=== PATIENT | male | born 1960 | race Caucasian/White ===

== ENCOUNTER 2021-01-06 11:20 | Emergency (ER) | payer BC, SELFPAY ==
[2021-01-06 12:10] VITALS: BP 157/85; PULSE 65; RESP 18; TEMP 36.7; O2SAT 98
--- NOTE | 2021-01-06 12:38 | ED.WOUNDLAC ---
HPI - Wound/Laceration General Chief Complaint: Wound/Laceration Stated Complaint: Wrist laceration Time Seen by Provider: 01/06/21 12:23 Source: patient Mode of arrival: ambulatory Limitations: no limitations History of Present Illness HPI narrative: Patient is a 60-year-old male complaining of accidentally cutting his left wrist with a razor knife while cutting drywall. Patient states that he was cutting the drywall when his hand slipped and accidentally cut his left wrist. Patient denies any other pain or injuries. Related Data Allergies Allergy/AdvReac Type Severity Reaction Status Date / Time No Known Allergies Allergy Verified 09/18/20 09:27 Review of Systems Review of Systems: All systems reviewed & are unremarkable except as noted in HPI and below PMFSH Past Medical History Medical History Deficient knowledge of leg surgery Left leg 1984 Hematospermia Hepatitis Hernia Hyperlipidemia Hypertension Osteoarthritis Surgical History Surgical History H/O wrist surgery Left 2002 History of knee replacement, total Left 2008 Family History Family History Mother Hypertension Family history of diabetes mellitus in first degree relative Other Cerebrovascular accident Diabetes mellitus Social History Social History Smoking status: Never smoker Smoking end date: 09/27/19 Alcohol intake: current Exam Const: General: no acute distress and alert Orientation/consciousness: patient oriented x3 HENMT: Head: normal to inspection Eyes: Conjunctivae: conjunctivae normal Resp: Effort & Inspection: normal respiratory effort Skin: General skin exam: normal color Neuro: General: patient oriented x3 and moves all extremities Extrem: Other: 1 cm puncture wound left wrist, neurovascular is intact, full range of motion. Psych: Mental Status: mental status grossly normal Affect: normal affect Attitude: cooperative Thought content: Yes Normal thought content present Course Vital Signs Vital signs: Vital Signs Temperature 36.7 C 01/06/21 12:10 Pulse Rate 65 01/06/21 12:10 Respiratory Rate 18 01/06/21 12:10 Blood Pressure 157/85 H 01/06/21 12:10 Pulse Oximetry 98 01/06/21 12:10 Temperature 36.7 C 01/06/21 12:10 Pulse Rate 65 01/06/21 12:10 Respiratory Rate 18 01/06/21 12:10 Blood Pressure 157/85 H 01/06/21 12:10 Pulse Oximetry 98 01/06/21 12:10 Procedures Laceration Laceration 1: Date: 01/06/21 Time: 13:34 Site: upper extremity (Left wrist) Side (If applicable): left Size (cm): 1 Description: linear Depth: simple, single layer ====== Skin Level ====== Skin layer closed with: dermabond ====== Subcutaneous Layer ====== ====== Muscle Layer ====== ====== Tendon Layer ====== Discharge Plan Discharge Clinical Impression: Puncture wound of left wrist Qualifiers: Encounter type: initial encounter Qualified Code(s): S61.532A - Puncture wound without foreign body of left wrist, initial encounter Patient Disposition: Home, Self-Care Condition: Improved Instructions: Puncture Wound (ED) Prescriptions: No Action sildenafil 100 mg tablet 100 mg PO DAILY PRN (Reason: sexual activity) Qty: 90 RF: 1 triamterene-hydrochlorothiazid 37.5-25 mg tablet 1 tablet PO DAILY Qty: 30 RF: 0 atenolol 50 mg tablet 50 mg PO DAILY Qty: 30 RF: 0 simvastatin 20 mg tablet 20 mg PO DAILY Qty: 30 RF: 0 Follow-up/Referrals: Km Sauceda DO [Primary Care Provider] - 01/08/21 Time of Disposition: 13:34
[2021-01-06] MEDS: TETANUS,DIPHTHERIA,AC PERTUSSIS ADULT (0.5 ML) BOOSTRIX IM (13:42)
[2021-01-06 13:46] VITALS: BP 148/80; PULSE 67; RESP 18; O2SAT 98
== END 2021-01-06 13:47 | disposition home or self-care (01) ==
LOC: ANHED 13:03
PROVIDERS: Emergency Provider Emergency Medicine; PCP Internal Medicine
DX: S61.532A Puncture wound without foreign body of left wrist, initial encounter (principal); Z23 Encounter for immunization; E78.5 Hyperlipidemia, unspecified; I10 Essential (primary) hypertension; M19.90 Unspecified osteoarthritis, unspecified site; Z96.652 Presence of left artificial knee joint; W27.8XXA Contact with other nonpowered hand tool, initial encounter
CPT/HCPCS: 12001; 90471; 90715; 99282

== ENCOUNTER → 2022-07-03 08:09 | Outpatient (CLI) | payer BC, SELFPAY ==
--- NOTE | ~2022-07-03 | XR_ITS ---
EXAMINATION: XR shoulder LT min 2V DATE: 07/03/2022 08:31 INDICATION: Left shoulder pain. TECHNIQUE: 5 views of left shoulder were obtained. COMPARISON: None. FINDINGS: Bone alignment is normal. No fracture. There is mild osteoarthritis of glenohumeral joint a nd moderate osteoarthritis of acromioclavicular joint. IMPRESSION: 1. Polyarticular osteoarthritis. Reviewed, dictated and finalized at location D.
== END ==
PROVIDERS: PCP Nurse Practitioner; Visit Provider Nurse Practitioner
DX: M25.512 Pain in left shoulder (principal); M19.012 Primary osteoarthritis, left shoulder
CPT/HCPCS: 73030

== ENCOUNTER → 2022-07-23 07:32 | Outpatient (CLI) | payer BC, SELFPAY ==
--- NOTE | ~2022-07-23 | MR_ITS ---
EXAMINATION: MR shoulder LT wo con DATE: 07/23/2022 08:34 INDICATION: Left shoulder pain TECHNIQUE: Magnetic resonance imaging (MRI) of the left shoulder was performed without intravenous co ntrast. Sequences included axial PD-weighted FS FSE, coronal oblique PD-weighted FS FSE, coronal obli que T2-weighted FS FSE, sagittal PD-weighted FS FSE, and sagittal T1-weighted SE. COMPARISON: None. FINDINGS: Coracoacromial arch: The acromion undersurface is flat in morphology (type I). The coracoacromial ligament is normal. Mode rate acromioclavicular osteoarthritis with small to moderate-sized inferiorly directed osteophytes. Rotator cuff: Full-thickness tear involving nearly the entire supraspinatus tendon sparing only a small portion of the conclusion of the posterior portion of the tendon to the conjoined portion of the supraspinatus a nd infraspinatus tendons. There is 4 cm medial retraction of the supraspinatus tendon tear origin. Th e tear extends anteriorly to involve nearly the entire lesser tuberosity insertion of the subscapular is tendon with small portion of intact tendon at the inferior most lesser tuberosity footplate and th in intact bursal side of the tendon which remains contiguous with the intact transverse humeral ligam ent. There is also significant medial retraction of the torn portion subscapularis tendon with marked attenuation of the distal 6 cm of the tendon. Mild tendinopathy at the anterior infraspinatus tendon without tear. The teres minor tendon is normal. There is mild fatty atrophy of the supraspinatus mus chicho belly. There is also some fatty atrophy of the subscapularis muscle belly however assessment is l imited due to the medial retraction of the muscle belly resulting from the tendon tear. Biceps tendon, glenoid labrum and glenohumeral cartilage: Moderate tendinopathy at the junction of the intra-articular and extra articular portion of the long head biceps tendon. There is a longitudinal split tear of the tendon at the level of the intertubercu lar groove. There is a linear tear at the base of the inferior glenoid labrum beginning anteriorly at the 4:00 position and extending inferiorly and posterior to the 9:00 position. 6 x 3 x 2 mm para lab ral cyst at the 6:00 position of the glenoid. More amorphous increased signal and irregular margins o f the posterior superior glenoid labrum consistent with less well-defined labral degeneration. Partia l-thickness cartilage loss without degenerative subchondral changes at the apex of the humeral head. Fluid: Small left glenohumeral joint effusion which communicates through the full-thickness rotator cuff tea r with an additional small amount of fluid in the subacromial/subdeltoid bursa. No loose osteochondra l bodies. Bones: No fracture or pathologic marrow replacing process. 16 x 12 x 9 mm T1 hypointense, T2 hyperintense le gail with lobular margins at the proximal left humeral metaphyseal region. No evident correlate on th e prior radiographs. IMPRESSION: 1. Full-thickness tear involving all but a small portion of the posterior most left supraspinatus ten don and which extends anteriorly is a near full-thickness articular sided subscapularis tendon tear w hich involves all but a small portion of the inferior most lesser tuberosity footplate as well as a m inimal amount the bursal side of the tendon which remains contiguous with the transverse humeral liga ment. 2. Mild left glenohumeral osteoarthritis with extensive labral tearing/degeneration. 3. Moderate-sized acromioclavicular osteoarthritis. 4. Indeterminate 16 x 12 x 9 mm T2 hyperintense lesion with lobular margins of the proximal metaphyse al region of the left humerus and without evident correlate on the plain radiographs statistically mo st likely to represent an enchondroma. If there is history of prior malignancy would recommend bone s can for further evaluation.
== END ==
PROVIDERS: PCP Internal Medicine; Visit Provider Nurse Practitioner
DX: M25.512 Pain in left shoulder (principal); S46.012A Strain of muscle(s) and tendon(s) of the rotator cuff of left shoulder, initial encounter; M19.012 Primary osteoarthritis, left shoulder; M89.9 Disorder of bone, unspecified
CPT/HCPCS: 73221

== ENCOUNTER 2022-09-30 00:46 | Day surgery (SDC) | payer BC, SELFPAY ==
[2022-09-15 15:00] VITALS: BMI 28.5
--- NOTE | 2022-09-15 15:06 | PC.NURSE ---
Report to the Outpatient Waiting Room, entrance under the green pavilion located off [facility], at time 1130 on date 09/30/21. Planned Procedure Time: 1330. Time changes happen often and if your time is changed the preop area will call you the afternoon before. - You and your visitor will be asked to self-screen and do not enter if you have any COVID symptoms. - Only one visitor is requested with a max of two and NO children visitors are allowed at this time. - The patient visitor may be requested to leave or wait in car when not with patient due to distancing restrictions. - A mask is REQUIRED within the hospital. Patients may have clear liquids (water, carbonated beverages, clear teas, apple juice) until 3 hours prior to surgery with a maximum of 20 ounces. - No food from midnight until time of surgery Take the following medications with a SIP of water the morning of surgery: ATENOLOL Medications to discontinue per physician: N/A Date to take last dose: N/A Please no make-up, nail turkish, hairspray, perfume, deodorant, or body powder the day of surgery. No jewelry (including any body piercings) or valuables the day of surgery, leave them at home. Please take a shower or bath the night before, or the morning of, surgery with an antibacterial soap. Wear comfortable, loose fitting clothing. - Jewelry must be removed prior to entering the operating room. Rings and piercings that are not removed may be cut off. - The hospital will not accept responsibility for valuables. - Please leave all valuables, including medications, at home the day of surgery. If you are going home after surgery, a licensed vending route driver must drive you home. - NO public transportation without another adult if you receive anesthesia. - We recommend that an adult stay with you for 24 hours following discharge. - We also recommend that you do not drive, make important decision, drink alcoholic beverages, or take any drugs that were not prescribed by your health care provider for at least 24 hours after your discharge time. Follow any additional instructions given to you from your surgeon. If you or anyone in your household have experienced Covid symptoms in the past week, please notify your surgeon or the nurse liaison at the phone number below for possible testing. Telephone instructions given to PT - EMILY BROWNING and asked if any additional questions and then verbalized understanding. Patient advised to call surgeon office or pre surgery nurse liaison [phone] if any additional questions.
[2022-09-30] VITALS (8 sets, daily range): BP systolic 133–162; BP diastolic 71–93; PULSE 54–97; RESP 12–16; TEMP 36.7; O2SAT 93–100
--- NOTE | 2022-09-30 07:20 | WPDHPUPDATE1 ---
History and Physical Update Update Date/Time: 09/30/22 07:20 History and Physical has been reviewed, including an updated exam of the patient. There are NO changes in the patient's condition. Risks, benefits, and alternatives have been discussed and questions answered. Patient agrees to proceed with procedure.
--- NOTE | 2022-09-30 07:42 | WPDANESEPPF ---
Anes - Initial Pre Proc Eval Procedure: Operation Date: 09/30/22 10:30 Proposed Procedures p Left Rotator Cuff Repair with Distal Clavicle Excision - Eros Chowdary MD <Erick Rolle DO - Last Filed: 10/08/22 13:39> Date/Time: 09/30/22 07:42 <Erick Rolle DO - Last Filed: 10/08/22 13:39> Surgeon: Eros Chowdary MD <Erick Rolle, DO - Last Filed: 10/08/22 13:39> Pre Op Diagnosis: Lt Rot Cuff Tear, AC Joint Arthritis <Erick Rolle DO - Last Filed: 10/08/22 13:39> Patient Data Age: 62 Gender: M Height: 1.8 m Weight: 93 kg <Erick Rolle DO - Last Filed: 10/08/22 13:39> Allergies Allergy/AdvReac Type Severity Reaction Status Date / Time No Known Allergies Allergy Verified 09/30/22 08:04 <Erick Rolle DO - Last Filed: 10/08/22 13:39> Home Medications Medication Instructions Recorded Confirmed Type atenolol 50 mg tablet See Rx Instructions .Route 04/08/22 09/30/22 Rx .COMPLEX #90 tabs simvastatin 20 mg tablet See Rx Instructions .Route 04/08/22 09/30/22 Rx .COMPLEX #90 tabs losartan 50 mg-hydrochlorothiazide 1 tablet PO DAILY #90 tabs 09/02/22 09/30/22 Rx 12.5 mg tablet clindamycin phosphate 1 % topical 1 applic topical DAILY #75 mL 09/14/22 09/30/22 Rx gel, once daily (Clindagel) oxycodone-acetaminophen 7.5 mg-325 1 tablet PO Q6H PRN pain #40 tabs 09/30/22 Rx mg tablet (Percocet) <Erick Rolle DO - Last Filed: 10/08/22 13:39> Patient hx anesthesia problems: none <Erich Bhakta MD - Last Filed: 09/30/22 09:28> Family hx anesthesia problems: none <Erich Bhakta MD - Last Filed: 09/30/22 09:28> Results Review: All pre-operative results and documents have been reviewed as part of the pre-operative evaluation. <Erick Rolle DO - Last Filed: 10/08/22 13:39> [facility] Past Medical History Medical History: Medical History Deficient knowledge of leg surgery Left leg 1984 Degenerative joint disease of right hip Enchondroma of bone Hematospermia Hepatitis Hernia Hyperglycemia Hyperlipidemia Hypertension Left shoulder pain Osteoarthritis Rash Rising PSA level Rotator cuff tear <Erick Rolle DO - Last Filed: 10/08/22 13:39> Surgical History Surgical History: Surgical History (Updated 09/30/22 @ 07:43 by Erick Rolle DO) H/O wrist surgery Left 2002 History of appendectomy History of knee replacement, total Left 2009 History of tonsillectomy <Erick Rolle DO - Last Filed: 10/08/22 13:39> Family History Family History: Family History Mother Hypertension Family history of diabetes mellitus in first degree relative Other Cerebrovascular accident Diabetes mellitus <Erick Rolle DO - Last Filed: 10/08/22 13:39> Social History Social History: Social History Smoking packs per day: 1 Smoking cigarettes per day: 20.0 Years smoked: 20 Smoking pack-years: 20.00 Smoking status: Former smoker Tobacco type: cigarettes Smoking end date: 09/27/01 Alcohol intake: current Drinks per week: 12 Alcohol use details: BEER Substance use: never Substance use type: does not use Lack of Transportation: No Lack of Food: Never True Current Housing: I Have Housing Concerned About Future Housing: No Difficulty Paying Gas/Electric Bills: No Difficulty Paying for Meds: No Currently Unemployed: No Education: High School Diploma/GED Difficulty w/ Childcare or Family Care: No Living arrangements: with family Spiritual care concerns: No <Erick Rolle DO - Last Filed: 10/08/22 13:39> Anes - Eval Final PreProcedure Day of Procedure 09/30/22 07:42 <Erick Rolle, DO
--- NOTE | 2022-09-30 08:41 | WPDANESPNB ---
Anes - Peripheral Nerve Block Date/Time: 09/30/22 08:41 I have discussed with the patient/family/POA the placement of a peripheral nerve block for post-operative pain management, including associated risks, benefits, complications, and side effects. Alternative methods of post-operative analgesia were detailed. Questions were solicited and answers provided to the satisfaction of the patient/family/POA. Time-Out: A pre-procedural Time-Out was completed immediately before starting the procedure and confirmed: Patient Identification, Site, Procedure, Patient Position and the Availability of Requisite Equipment. Clinical Indications: Acute post-operative pain management requested by the operative surgeon. Nerve Block Insertion Note Anes-nerve block: supraclavicular left Patient position: supine Skin prep: chlorhexidine Needle: 22 gauge, stimulating, insulated echogenic needle. Needle length: 80 mm Technique: ultrasound (in plane) Injectate: bupivacaine 0.25% with epi 5 mcg/ml (20cc) Observations: tolerated well Complications: none Procedure start time:: 1040 Procedure end time:: 1044
[2022-09-30] MEDS: CELECOXIB 200 MG CAPSULE PO (08:45)
[2022-09-30] MEDS: ACETAMINOPHEN 500 MG TABLET 1000 MG PO (08:45)
[2022-09-30] MEDS: LACTATED RINGERS 1,000 ML 30 ML IV CONT ×2 (08:56→13:53)
[2022-09-30] MEDS: fentaNYL CITRATE INJ (*CRX) 100 MCG/2 ML VIAL 25 MCG IV PUSH (14:03)
--- NOTE | 2022-09-30 14:15 | W.PM.PROC2 ---
Procedure Note - Detailed Date of Procedure 09/30/22 Pre-op Diagnosis Lt Rot Cuff Tear, AC Joint Arthritis Post-op Diagnosis Same Procedure Performed REPAIR LEFT ROTATOR CUFF WITH DCE Surgeon Eros Chowdary MD Anesthesia General Description of Procedure THE PATIENT WAS TAKEN TO THE OPERATING ROOM AND THEN INTUBATED AND PLACED IN THE BEACH CHAIR POSITION. THE LEFT UPPER EXTREMITY WAS PREPPED AND DRAPED IN THE NORMAL STERILE FASHION. AN INCISION WAS MADE IN BETWEEN THE ALBERTA-LATERAL ACROMION AND THE AC JOINT. THE AC JOINT WAS INCISED. THERE WAS SEVERE DJD TO THE AC JOINT. A DISTAL CLAVICLE EXCISION WAS PREFORMED REMOVING APPROXIMATELY 1 CM OF BONE FROM THE DISTAL CLAVICLE. THE WOUND WAS WASHED AND THE CAPSULE WAS REPAIRED WITH 0 VICRYL. THE FASCIA WAS IDENTIFIED. NEXT A MINI OPEN INCISION WAS MADE THROUGH THE DELTOID MUSCLE EXPOSING THE SUBACROMIAL SPACE. A LIMITED ACROMIOPLASTY WAS PREFORMED. THE ROTATOR CUFF WAS IDENTIFIED. THERE WAS A FULL THICKNESS TEAR. IT MEASURED APPROXIMATELY 3 CM X 4 CM. THE GREATER TUBEROSITY WAS DEBRIDED TO BLEEDING BONE. 3 ARTHREX 5.5 SUTURE ANCHORS AND 1 SWIVEL LOCK ANCHOR WITH FIBER TAPE WERE PLACED IN TO GOOD BONE AND HAD VERY GOOD BITES. MOIRA-MAXWELL TYPE REPAIRS WERE DONE TO THE ROTATOR CUFF AND THERE WAS GOOD APPROXIMATION TO THE GREATER TUBEROSITY. THE REPAIR WAS EXCELLENT. THERE WAS NO IMPINGEMENT ON THE REPAIR FROM THE ACROMION WITH RANGE OF MOTION. THE WOUND WAS IRRIGATED WITH COPIOUS AMOUNTS OF ANTIBIOTIC SOLUTION. THE DELTOID MUSCLE WAS REPAIRED WITH #2 FIBER WIRE AND 0 VICRYL SUTURE. THE SUBCUTANEOUS LAYER WAS APPROXIMATED WITH 2-0 VICRYL. THE SKIN WAS APPROXIMATED WITH 3-0 QUIL AND DERMABOND. STERILE DRESSING WAS APPLIED. PATIENT WAS EXTUBATED. Estimated Blood Loss -50.0 Complications No immediate complications Condition Stable Disposition PACU
== END 2022-09-30 16:05 | disposition home or self-care (01) ==
PROVIDERS: PCP Nurse Practitioner; Visit Provider Orthopaedic Surgery
PROC: (CPT 23420; principal; 2022-09-30 10:30)
DX: S46.012A Strain of muscle(s) and tendon(s) of the rotator cuff of left shoulder, initial encounter (principal); X50.0XXA Overexertion from strenuous movement or load, initial encounter; Y93.B3 Activity, free weights; M19.012 Primary osteoarthritis, left shoulder; G89.18 Other acute postprocedural pain; E78.5 Hyperlipidemia, unspecified; I10 Essential (primary) hypertension; Z87.891 Personal history of nicotine dependence
CPT/HCPCS: 23410; 23120; 64415; A9270; C1713; J1100; J1170; J2250; J2370; J2405; J2704; J3010; J7120

== ENCOUNTER 2023-06-30 11:08 | Outpatient (CLI) | payer BC, SELFPAY ==
[2023-06-30 19:16] LABS: Alanine Aminotransferase 26 U/L (6-50); Albumin Level 4.3 g/dL (3.5-5.1); Alkaline Phosphatase 63 U/L (38-126); Anion Gap 4 mmol/L (8-16); Aspartate Amino Transferase 34 U/L (17-59); Bilirubin,Total 0.9 mg/dL (0.2-1.3); Blood Urea Nitrogen 13 mg/dL (9-20); Calcium 8.8 mg/dL (8.4-10.2); Carbon Dioxide 28 mmol/L (22-30); Chloride 104 mmol/L (98-107); Cholesterol 209 mg/dL (0-200); Estimated Glomerular Filt Rate > 60; Glucose 112 mg/dL (65-110); HDL Direct 68 mg/dL; Potassium 4.9 mmol/L (3.4-5.0); Sodium 136 mmol/L (137-145); Triglycerides 81 mg/dL (<150)
[2023-06-30 19:27] LABS: LDL Cholesterol Direct 118 mg/dL
[2023-06-30 19:44] LABS: Basophils Absolute Auto 0.1 K/mm3 (0.0-0.1); Eosinophils Absolute Auto 0.2 K/mm3 (0-0.3); Eosinophils Percent Auto 2.8 % (0-4.4); Hematocrit 45.7 % (42.0-52.0); Hemoglobin 15.1 g/dL (14.0-18.0); Immature Granulocyte Absolute 0.02 K/mm3 (0.00-0.031); Immature Granulocyte Percent A 0.3 % (0-0.5); Lymphocytes Absolute Auto 1.94 K/mm3 (0.9-3.2); Lymphocytes Percent Auto 26.8 % (18.3-44.2); Mean Corpuscular Hemoglobin 30.9 pg (26-34); Mean Corpuscular Volume 93.5 fl (80-100); Mean Platelet Volume 10.1 fl (7.4-10.4); Monocytes Absolute Auto 0.8 K/mm3 (0.1-0.6); Monocytes Percent Auto 10.9 % (2.6-8.5); Neutrophils Absolute Auto 4.2 K/mm3 (1.3-6.7); Neutrophils Percent Auto 58.2 % (45.5-73.1); Platelet Count Result 188 k/mm3 (150-375); Red Blood Count 4.89 M/mm3 (4.6-6.20); White Blood Count 7.2 K/mm3 (4.5-10.0)
[2023-06-30 19:47] LABS: Prostate Specific Antigen 3.9 ng/mL (< OR = 4.0)
== END 2023-06-30 11:09 | disposition home or self-care (01) ==
LOC: ANHGOSHLAB 11:10
PROVIDERS: Clinical Nurse Specialist; PCP Internal Medicine; Visit Provider Nurse Practitioner
DX: E78.5 Hyperlipidemia, unspecified (principal); I10 Essential (primary) hypertension; Z12.5 Encounter for screening for malignant neoplasm of prostate; R73.9 Hyperglycemia, unspecified
CPT/HCPCS: 36415; 80053; 80061; 83036; 84153; 85025; G0103

== ENCOUNTER 2025-03-02 08:20 | Outpatient (CLI) | payer BC, SELFPAY ==
--- NOTE | ~2025-03-02 | XR_ITS ---
XR knee LT 3V 03/02/2025 08:35 Indication: Left knee pain Procedure: 3 views left knee Comparison: Comparison to multiple prior studies sequentially, with oldest reviewed study dated 05/2010. Findings: There is a left total knee arthroplasty. Prosthesis well seated. No acute fracture or traum atic malalignment. Osteopenia. No significant joint effusion. Impression: 1: No significant bone or joint abnormality. Reviewed, dictated and finalized at location A. Impression: 1: No significant bone or joint abnormality.
== END 2025-03-02 08:21 | disposition home or self-care (01) ==
LOC: GOSHIMG 08:20
PROVIDERS: PCP Internal Medicine; Visit Provider Clinical Nurse Specialist
DX: M25.562 Pain in left knee (principal)
CPT/HCPCS: 73562

== ENCOUNTER 2025-04-11 07:58 | Outpatient (CLI) | payer BC, SELFPAY ==
--- NOTE | ~2025-04-11 | CT_ITS ---
CT OF left knee EXAMINATION: CT knee LT wo con DATE: 04/11/2025 08:26 INDICATION: Left knee pain TECHNIQUE: Computed tomography (CT) of the left knee was performed without intravenous contrast. Auto mated exposure control and iterative reconstruction technique were employed. The dose-length product was 401.69 mGy-cm. COMPARISON: X-ray left knee 03/02/2025 FINDINGS: Left knee arthroplasty hardware in good position. No hardware fracture or abnormal perihardware lucen cy. A lateral tibial plate screw extends into the articulation between the tibia and fibula, a chroni c finding. Detail joint is obscured by metal artifact. No fracture or dislocation. No lytic or blasti c lesion. Unremarkable surrounding soft tissues. Small knee joint effusion. IMPRESSION: No acute finding in the left knee. No CT evidence of acute hardware related complication. Reviewed, dictated and finalized at location K. IMPRESSION: No acute finding in the left knee. No CT evidence of acute hardware related com plication.
== END 2025-04-11 07:59 | disposition home or self-care (01) ==
LOC: GOSHIMG 07:58
PROVIDERS: PCP Orthopaedic Surgery; Visit Provider Orthopaedic Surgery
DX: T84.84XA Pain due to internal orthopedic prosthetic devices, implants and grafts, initial encounter (principal); Z96.652 Presence of left artificial knee joint
CPT/HCPCS: 73700